=== PATIENT | female | born 1985 | race Caucasian/White ===

== ENCOUNTER 2018-11-23 16:56 | Emergency (ER) | payer BC ==
[2018-11-23] MEDS ORDERED: IPRATROPIUM/ALBUTEROL 3 ML DEYVIAL IH ONE ×2 (17:27→18:33)
[2018-11-23] MEDS ORDERED: DEXAMETHASONE 4 MG TAB PO ONE (17:52)
--- NOTE | 2018-11-23 17:56 | EDPHY ---
H & P Stated Complaint: sob hoarseness cough - Personal History LMP (Females 10-55): 1-7 Days Ago Current Tetanus Diphtheria and Acellular Pertussis (TDAP): Yes Tetanus Vaccine Date: 2012 - Medical/Surgical History Hx Asthma: No Hx Chronic Respiratory Disease: No Hx Diabetes: No Hx Cardiac Disease: No Hx Renal Disease: No Hx Cirrhosis: No Hx Alcoholism: No Hx HIV/AIDS: No Hx Splenectomy or Spleen Trauma: No Other PMH: denies - Social History Smoking Status: Never smoked Time Seen by Provider: 11/23/18 17:30 HPI/ROS: CHIEF COMPLAINT: Cough, flu-like symptoms x1 day HISTORY OF PRESENT ILLNESS: 33-year-old female, immunocompetent, no seasonal influenza vaccination, complaining of 1 day of flu-like symptoms, hoarse voice, productive cough, dyspnea, sore throat. Denies: Chest pain, back pain, abdominal pain, rash, nuchal rigidity, otalgia, muscular flaccidity or and/or paralysis PRIMARY CARE PROVIDER: REVIEW OF SYSTEMS: 10 systems reviewed and negative with the exception of the elements mentioned in the history of present illness PAST MEDICAL & SURGICAL HISTORY: No history of chronic pulmonary disease. No seasonal influenza vaccination SOCIAL HISTORY: Nonsmoker. No drug use. PHYSICAL EXAM (Prior to examination, patient consented to physical exam, hands were washed and my usual and customary physical exam procedures followed) 1) GENERAL: Well-developed, well-nourished, alert and oriented. Appears to be in no acute distress. 2) HEAD: Normocephalic, atraumatic 3) HEENT: Pupils equal, round, reactive to light bilaterally. Sclera anicteric. Nasopharynx, oropharynx, clear, no lesions. Moist Mucous membranes. No tonsillar enlargement or exudate. Ears bilaterally with normal tympanic membranes. No evidence of otitis media otitis externa 4) NECK: Full range of motion, no meningeal signs. 5) LUNGS: Bilateral rhonchorous breath sounds. Speaking full sentences. 6) HEART: Regular rate and rhythm, no murmur, no heave, no gallop. 7) ABDOMEN: No guarding, no rebound, no focal tenderness, negative McBurney's, negative Sun's, negative Rovsing's, negative peritoneal sign, 8) MUSCULOSKELETAL: Moving all extremities, no focal areas of tenderness, no obvious trauma. No peripheral edema or discoloration. 9) BACK: No CVA tenderness, no midline vertebral tenderness, no fluctuance, no step-off, no obvious trauma, no visual or palpable abnormality. 10) SKIN: No rash, no petechiae. 11) Psychiatric: Patient is oriented X 3, there is no agitation. DIFFERENTIAL DIAGNOSIS: In no particular order including but not limited to pneumonia, bronchitis, influenza (Ailin Miranda) Constitutional: Initial Vital Signs Temperature (C) 36.9 C 11/23/18 16:59 Heart Rate 68 11/23/18 16:59 Respiratory Rate 18 11/23/18 16:59 Blood Pressure 101/93 H 11/23/18 16:59 O2 Sat (%) 97 11/23/18 16:59 O2 Delivery Mode Room Air Allergies/Adverse Reactions: No Known Allergies Allergy (Verified 11/23/18 16:59) Home Medications: Medication Instructions Recorded Albuterol [Proventil Inhaler HFA 1 - 2 puffs IH Q4PRN PRN #1 mdi 11/23/18 (*)] Azithromycin [Zithromax] 500 mg PO DAILY #1 tablet 11/23/18 Benzonatate [Tessalon Pearles (RX)] 200 mg PO TID PRN #15 cap 11/23/18 Medical Decision Making - Diagnostics Imaging Results: Images reviewed myself (Ailin Miranda) ED Course/Re-evaluation: 6:32 p.m.: Re-evaluation after DuoNeb x1. She is feeling improvement feels that she could be opened up more. Will provide further DuoNeb. Her influenza testing is negative. There is no focal infiltrate on chest x-ray. 7:07 p.m.: Re-evaluation. Feeling "much better". Saturations 95% room air, breathing comfortably, lungs clear bilaterally. Think the patient can be discharged home. Given prescriptions at discharge, given my usual and customary respiratory precautions and instructions. She feels comfortable being discharged. Care of patient under supervision of secondary supervising physician Dr Moreno . (Ailin Miranda) Other Provider: The patient was evaluated and managed by the Physician [employer]. My co- signature indicates that I have reviewed this chart and I agree with the findings and plan of care as documented. I am the secondary supervising physician. (Marilee Moreno) - Data Points Medications Given: Discontinued Medications Albuterol/Ipratropium (Duoneb) 3 ml IH EDNOW ONE Stop: 11/23/18 17:28 Last Admin: 11/23/18 17:37 Dose: 3 ml Albuterol/Ipratropium (Duoneb) 3 ml IH EDNOW ONE Stop: 11/23/18 18:34 Last Admin: 11/23/18 18:34 Dose: 3 ml Dexamethasone (Decadron) 10 mg PO EDNOW ONE Stop: 11/23/18 17:53 Last Admin: 11/23/18 17:55 Dose: 10 mg Departure - Departure Disposition: Home, Routine, Self-Care Clinical Impression: Acute bronchitis Condition: Good Instructions: Acute Bronchitis (ED) Additional Instructions: Return to the emergency department immediately for change in breathing habits, change in voice, change in swallowing habits, change in mental status, or any other symptoms that concern you. Referrals: Pollo Lacey MD [Medical Doctor] - 2-3 days, call for appt. Prescriptions: Albuterol [Proventil Inhaler HFA (*)] 1 - 2 puffs IH Q4PRN PRN #1 mdi PRN Reason: Cough, Moderate Azithromycin [Zithromax] 500 mg PO DAILY #1 tablet Benzonatate [Tessalon Pearles (RX)] 200 mg PO TID PRN #15 cap PRN Reason: Cough, Moderate
[2018-11-23] MEDS ORDERED: IPRATROPIUM/ALBUTEROL 3 ML DEYVIAL ONE (18:32)
[2018-11-23 19:27] VITALS: BP 104/76
== END 2018-11-23 19:25 | disposition home or self-care (01) ==
DX: J20.9 Acute bronchitis, unspecified (principal)